=== PATIENT | male | born 1960 | race Caucasian/White ===

== ENCOUNTER 2019-01-08 09:19 | Emergency (ER) | payer BC, SELFPAY ==
[2019-01-08 09:21] VITALS: BP 110/65; PULSE 84; RESP 18; TEMP 36.3; O2SAT 98; BMI 26.3
--- NOTE | 2019-01-08 09:40 | ED.DCSUM_ITS ---
- ER Visit Summary Date of Service: 01/08/19 Chief Complaint: Unable to urinate History of Present Illness: The patient is a 58 M with history of prostate issues who has never seen urology presents with urinary retention. Patient states that last night, he states that he fell he can urinate but cannot get much out. He states he had some dribbling overnight. He developed chills and subjective fever. He states this morning, he was able to have no urine output. He denies any blood when he was able to urinate last night. He is never had prostate surgery. He states that he had issues with urinary flow and has been on Flomax for 2 years. He is on no other medications. He is otherwise healthy. He denies any nausea or vomiting. He denies any back pain. Physical Examination: Vital signs reviewed General: Well-nourished, well-developed Head: Normocephalic, atraumatic Eyes: Pupils equal and reactive, extraocular muscles intact Neck, supple, no lymphadenopathy Heart: Regular rate and rhythm Respiratory: No distress, clear bilaterally Abdomen: Soft, mildly ttp in the suprapubic area, nondistended, no peritoneal signs Back: Nontender Extremities: Nontender, no edema, no cords Skin: Normal color no rash Neuro: Alert and oriented, no focal or lateralizing deficits Test Results: [] Emergency Department Course and Treatment: The patient presents with symptoms of urinary retention. Simon catheter was placed. He only had about 250 cc of urine out. He did feel symptomatically improved. He generally does not show evidence of infection. With a suprapubic pain and reported retention, I do feel that there may been another process going on. Screening labs were obtained were unremarkable. Patient underwent CT of the abdomen and pelvis. This does show acute uncomplicated diverticulitis. I do feel this is likely the cause of the patient's symptoms. I do feel this is likely irritating his bladder given the sensation that he needs to urinate though does not have to. Patient was started on oral Cipro and Flagyl. His catheter was removed. He was able to urinate without issue. At this time, I do feel the patient is safe for outpatient treatment. I am going to start him and continue him on Cipro and Flagyl. I did residence counselor him on concerning symptoms and reasons to return. I also counseled him that he should be reevaluated within 48 hours especially if he has any worsening symptoms. He is comfortable with this plan of care. Treatment Plan: [] Disposition: Discharge Impression: 1. Acute diverticulitis This note was generated with [employer] dictation software. It may contain incorrect words, spelling, and punctuation that were not noted in review of the chart prior to signing ED Disposition - Plan for ED Patient: Instructions: ED Diverticulitis Prescriptions: Hydrocodone Bitart/Apap 5-325 [[place] 5MG-325MG] 1 tab PO Q6H PRN PRN 3 Days #10 tab PRN Reason: Pain Metronidazole [Flagyl] 500 mg PO Q8H #21 tab Ciprofloxacin [Cipro] 500 mg PO BID #14 tab Referrals: NOT,DEFINED [NON-STAFF] -
[2019-01-08] MEDS: Lidocaine Jelly 2% 20 ML Syringe (URO-JET) 20 APPLIC TOPICAL (09:54)
[2019-01-08 10:12] LABS: White Blood Cells 0 SEEN /hpf (0-5)
[2019-01-08 10:16] LABS: Color, Urine Yellow (Yellow); Glucose, Dipstick Normal (Normal); Ketone-Dipstick Negative (Negative); Leukocyte Esterase-Dipstick Negative /ul (Negative); Nitrite-Dipstick Negative (Negative); Occult Blood-Urine 150 /ul (Negative); Protein-Dipstick Negative (Negative); Specific Gravity, Urine 1.015 (1.002-1.030); Urine Bilirubin Dipstick Negative (Negative); Urine Clarity Clear (Clear); Urine Urobilinogen Normal (Normal)
[2019-01-08 10:23] LABS: Bacteria RARE /hpf (None Seen); Mucous, Urine RARE /hpf (<or=2+); Red Blood Cells-Urine 5-10 SEEN /hpf (0-5); Squamous Epithelial Cells - UA 0-5 SEEN /hpf (0-5)
--- NOTE | 2019-01-08 10:28 | CT_ITS ---
STUDY: CT ABDOMEN AND PELVIS WITH CONTRAST REASON FOR EXAM: Male, 58 years old. Difficulty with urination. RADIATION DOSAGE (If Supplied By Facility): CTDIvol = ( 15.78 ) mGy, DLP = ( 1676.25 ) mGycm TECHNIQUE: Transaxial images were obtained from the dome of the diaphragm to the symphysis pubis without oral contrast. Isovue 300 100 IV was administered. Sagittal and coronal images were reconstructed. Individualized dose optimization techniques were used for this CT. COMPARISON: None. FINDINGS: There are increased linear markings with areas of confluence in both lower lobes suggestive of either dependent bibasilar atelectasis and/or mild scarring. Calcified granuloma in the right lower lobe. The visualized portions of the heart are within normal limits. Normal liver. Normal gallbladder and extrahepatic biliary system. Normal spleen. Normal pancreas. Normal bilateral adrenal glands. Normal right kidney. Normal left kidney. Normal visualized stomach. Normal small intestine. There is diverticulosis, with thickening of the colon wall, and pericolonic inflammation changes consistent with acute diverticulitis. The appendix is visualized and appears normal. Normal abdominal aorta. Normal inferior vena cava. There is borderline retroperitoneal lymphadenopathy with enlarged nodes no greater than 10mm in the short axis diameter. A Simon catheter is seen within the urinary bladder. The urinary bladder is not distended. There is evidence of a diffuse bladder wall thickening. There is a small umbilical hernia containing fat. Disc space narrowing and degeneration at the L5-S1 level. CT/Abdomen/Pelvis W IV Cont ONLY IMPRESSION: Findings in keeping with an uncomplicated acute sigmoid diverticulitis. Bladder wall thickening. Electronically Signed: Rambo Linares, at 11:21 EDT , Service support ,
[2019-01-08 10:40] LABS: Absolute Lymphocyte Count 0.42 X10^3/ul (0.83-4.51); Absolute Neutrophil Count 9.9 X10^3/uL (2.0-7.7); Basophil# 0.02 X10^3/uL; Basophil% 0.2 % (0-1); Hemoglobin 13.5 g/dl (13.0-16.5); Lymphocyte # 0.42 X10^3/ul (4.0); Lymphocyte % 3.9 % (19-41); Mean Corp Hgb Conc 32.9 g/gl (32-36); Mean Corpuscular Hgb 30.2 pg (27.0-32.0); Mean Corpuscular Volume 91.7 fL (80-94); Mean Platelet Vol. 9.9 fl (6.2-12.0); Monocyte# 0.58 X10^3/uL; Monocyte% 5.3 % (0-10); Neutrophil # 9.85 X10^3/uL (2.7-7.7); Neutrophil % 90.5 % (47-70); Platelet Count 171 K/mm3 (150-450); RBC Distribution Width CV 13.1 % (11.6-14.6); RBC Distribution Width SD 43.6 fl (35.1-43.9); Red Blood Count 4.47 M/mm3 (4.6-6.2); White Blood Count 10.9 K/mm3 (4.4-11.0)
[2019-01-08] MEDS: 0.9% Normal Saline 1,000 ML 999 ML IV (10:40)
[2019-01-08 10:42] LABS: Differential Indicated SCAN CRITERIA MET; POSITIVE COUNT NO; POSITIVE DIFFERENTIAL YES; POSITIVE MORPHOLOGY NO
[2019-01-08 10:51] LABS: Anion Gap 8 (5-15); BUN 17 mg/dL (7-18); BUN/Creat Ratio 18.2 RATIO (10-20); Calcium,Total 8.4 mg/dL (8.5-10.1); Chloride 107 mmol/L (98-107); Creatinine, Serum 0.94 mg/dL (0.70-1.30); EST Glomerular Filtration Rate 88 mL/min (>60); Est Glom Filt Rate - Afr Amer 107 mL/min (>60); Estimated Creatinine Clearance 92.34 ml/min; Glucose 112 mg/dL (74-106); Potassium 3.8 mmol/L (3.5-5.1); Sodium Level 138 mmol/L (136-145)
[2019-01-08] MEDS: Ciprofloxacin 500 MG Tablet PO (12:15)
[2019-01-08] MEDS: metroNIDAZOLE 500 MG Tablet PO (12:15)
[2019-01-08 13:24] VITALS: BP 108/66; PULSE 72; RESP 16; O2SAT 99
== END 2019-01-08 13:25 | disposition home or self-care (01) ==
PROVIDERS: Emergency Provider Emergency Medicine
DX: R33.9 Retention of urine, unspecified (principal); K57.92 Diverticulitis of intestine, part unspecified, without perforation or abscess without bleeding; N40.0 Benign prostatic hyperplasia without lower urinary tract symptoms; Z79.899 Other long term (current) drug therapy
CPT/HCPCS: 51702; 74177; 80048; 81001; 85025; 87086; 96360; 96361; 99284; J7030; Q9967; A4216

== ENCOUNTER 2019-01-14 15:52 | Inpatient (IN) | payer BC, SELFPAY ==
[2019-01-14] VITALS (7 sets, daily range): BP systolic 114–170; BP diastolic 70–80; PULSE 74–95; RESP 14–24; TEMP 36.4–37.7; O2SAT 92–100; BMI 26.3; BMI 26.1
--- NOTE | 2019-01-14 16:13 | CT_ITS ---
STUDY: CT ABDOMEN AND PELVIS WITH CONTRAST REASON FOR EXAM: Male, 58 years old. Recent diverticulitis. Abdominal pain. RADIATION DOSAGE (If Supplied By Facility): CTDIvol = ( 16.70 ) mGy, DLP = ( 1163.99 ) mGycm TECHNIQUE: Transaxial images were obtained from the dome of the diaphragm to the symphysis pubis without oral contrast. Isovue 300 100mL IV/Oral was administered. Sagittal and coronal images were reconstructed. Individualized dose optimization techniques were used for this CT. COMPARISON: January 08, 2019 FINDINGS: The visualized lung bases are unremarkable. The visualized portions of the heart are within normal limits. Normal liver. Normal gallbladder and extrahepatic biliary system. Normal spleen. Normal pancreas. Normal bilateral adrenal glands. Normal right kidney. Normal left kidney. Normal visualized stomach. There is circumferential wall thickening of the terminal ileum that is likely reactive. There are diverticula throughout the colon associated with circumferential wall thickening of the sigmoid colon and adjacent stranding. The appendix is visualized and appears normal. There are new peripherally enhancing fluid collections within the pelvis with associated adjacent stranding. Fluid collections include a 6.5 x 4.2 x 5.1 cm focus within the perirectal region posterior to the sigmoid colon. There are extraluminal fluid collections with peripheral enhancement suggestive of prior bowel perforation. Normal abdominal aorta. Normal inferior vena cava. Normal retroperitoneum. Normal urinary bladder. Normal abdominal wall. There are diffuse degenerative changes of the visualized lumbar spine. CT/Abdomen/Pelvis WITH Contrast IMPRESSION: New fluid collections within the pelvis with an appearance highly suspicious for underlying abscesses. There is associated air within several fluid collection suggesting prior bowel perforation. Acute diverticulitis of the sigmoid colon. N.B. : The above information has been verbally conveyed by Gina Camara MD to Marine Zavala MD, on 01/14/2019 19:00:30 (ET). Electronically Signed: Gina Camara MD at 19:01 EDT Tel , Service support ,
--- NOTE | 2019-01-14 16:16 | ED.DCSUM_ITS ---
- ER Visit Summary Date of Service: 01/14/19 Chief Complaint: Abdominal pain History of Present Illness: The patient is a 58 M who was seen in the ER last week for urinary retention and CT revealed diverticulitis. Patient has been on Cipro and Flagyl for the past week. He continues to have pain along with fever and chills. He feels that he is not urinating as much as he would expect for as much as he is drinking. He denies any prior abdominal surgeries. Physical Examination: Vital signs unremarkable. Temperature here is 97.5. Head neck examination unremarkable. Heart is regular rate and rhythm. Lung sounds are clear. Abdomen is soft with lower abdominal tenderness and guarding. There is no rebound. Hypoactive bowel sounds are present throughout. Test Results: CBC was normal white count with a left shift. Chemistry studies significant only for potassium 3.4. Urinalysis is unremarkable. CT scan with contrast reveals fluid collections within the pelvis suspicious for underlying abscesses. Air within several the fluid collections suggest prior bowel perforation. Emergency Department Course and Treatment: Patient declined anything for pain while here. Bladder scan was performed after he urinated and revealed only 34 cc. Results were discussed with Dr. Huff is patient has previously been seen by [facility]. Patient be given a dose of Zosyn and plan will be admit to medicine with probable CT-guided drainage tomorrow. Treatment Plan: [] Disposition: Admit Impression: Perforated diverticulitis with pelvic abscesses This note was generated with [employer] dictation software. It may contain incorrect words, spelling, and punctuation that were not noted in review of the chart prior to signing ED Disposition - Plan for ED Patient: Referrals: [facility] Doctor,Out of [NON-STAFF] -
[2019-01-14 16:37] LABS: Absolute Lymphocyte Count 1.45 X10^3/ul (0.83-4.51); Absolute Neutrophil Count 8.1 X10^3/uL (2.0-7.7); Basophil# 0.04 X10^3/uL; Basophil% 0.4 % (0-1); Eosinophil# 0.05 X10^3/uL; Eosinophils% 0.5 % (0-5); Hematocrit 40.4 % (40-54); Hemoglobin 13.2 g/dl (13.0-16.5); Lymphocyte # 1.45 X10^3/ul (4.0); Lymphocyte % 14.9 % (19-41); Mean Corp Hgb Conc 32.7 g/gl (32-36); Mean Corpuscular Hgb 29.6 pg (27.0-32.0); Mean Corpuscular Volume 90.6 fL (80-94); Mean Platelet Vol. 8.9 fl (6.2-12.0); Monocyte# 0.08 X10^3/uL; Monocyte% 0.8 % (0-10); Neutrophil # 8.06 X10^3/uL (2.7-7.7); Neutrophil % 83.2 % (47-70); Platelet Count 224 K/mm3 (150-450); RBC Distribution Width CV 13.3 % (11.6-14.6); RBC Distribution Width SD 43.7 fl (35.1-43.9); Red Blood Count 4.46 M/mm3 (4.6-6.2); White Blood Count 9.7 K/mm3 (4.4-11.0)
[2019-01-14 16:39] LABS: POSITIVE COUNT NO; POSITIVE DIFFERENTIAL NO; POSITIVE MORPHOLOGY NO
[2019-01-14 16:59] LABS: Anion Gap 6 (5-15); BUN 9 mg/dL (7-18); BUN/Creat Ratio 10.9 RATIO (10-20); Calcium,Total 8.4 mg/dL (8.5-10.1); Chloride 100 mmol/L (98-107); Creatinine, Serum 0.82 mg/dL (0.70-1.30); EST Glomerular Filtration Rate 102 mL/min (>60); Est Glom Filt Rate - Afr Amer 124 mL/min (>60); Estimated Creatinine Clearance 109.09 ml/min; Glucose 100 mg/dL (74-106); Potassium 3.4 mmol/L (3.5-5.1); Sodium Level 137 mmol/L (136-145)
[2019-01-14 17:04] LABS: Bacteria 0 SEEN /hpf (None Seen); Mucous, Urine 0 SEEN /hpf (<or=2+); Red Blood Cells-Urine 0 SEEN /hpf (0-5); Squamous Epithelial Cells - UA 0 SEEN /hpf (0-5); White Blood Cells 0 SEEN /hpf (0-5)
[2019-01-14 17:08] LABS: Color, Urine Yellow (Yellow); Glucose, Dipstick Normal (Normal); Ketone-Dipstick 5 mg/dl (Negative); Leukocyte Esterase-Dipstick 25 /ul (Negative); Nitrite-Dipstick Negative (Negative); Occult Blood-Urine Negative /ul (Negative); Protein-Dipstick Negative (Negative); Specific Gravity, Urine 1.005 (1.002-1.030); Urine Bilirubin Dipstick Negative (Negative); Urine Clarity Clear (Clear); Urine Urobilinogen Normal (Normal)
[2019-01-14] MEDS: 0.9% Normal Saline 1,000 ML 150 ML IV (17:24)
--- NOTE | 2019-01-14 19:20 | HP.PCM_ITS ---
Problem List (1) Acute diverticulitis Status: Acute History of Present Illness Date of Admission: 01/14/19 Chief Complaint: abdominal pain The patient is a 58 year old M with a significant history of urinary retention who presented with 1 week history of progressively worsening excruciating lower abdominal pain. His pain is nonradiating. His pain is an aching type of pain. There are no aggravating or ameliorating factors. Associated with his symptoms is fever, chills, and night sweats. He reported a fever of 100 while at home. Patient was at our emergency department about a week ago and was prescribed ciprofloxacin, Flagyl and pain medication. While on this regimen patient was still not getting better so he came to the emergency department. At this new emergency department visit patient was given Zosyn. CT of the abdomen and pelvis showed abscesses. Dr. Stallings, General Surgery was consulted and is interested in following the patient. In the meantime Dr. Stallings, General Surgeon recommended CT-guided drainage of abscesses. Past Medical History Medical History: Medical History (Last Reviewed 01/15/19 @ 05:08 by Jayme Magaña MD) Urinary retention R33.9 Allergies No Known Allergies Allergy (Verified 01/14/19 15:57) Home Medications: Ambulatory Orders Medication Instructions Recorded Ciprofloxacin [Cipro] 500 mg PO BID #14 tab 01/08/19 Metronidazole [Flagyl] 500 mg PO Q8H #21 tab 01/08/19 Tamsulosin HCl [Flomax] 0.4 mg PO DAILY 01/08/19 Calcium Polycarbophil [Fiber] 625 mg PO DAILY 01/14/19 Multivitamin with Minerals 1 tab PO DAILY 01/14/19 [Multiple Vitamin] Surgical History: no surgical history Lives: Spouse/ Significant Other Smoking Status: Former smoker Alcohol: Occasional Review of Systems Constitutional: Reports: Chills, Fever. Denies: Weight Change HEENT: Denies: Head Aches, Sinus Congestion, Sinus Drainage Cardiovascular: Denies: Chest Pain, Palpitations Respiratory: Denies: Cough, Shortness of breath at rest, Sputum production Gastrointestinal: Reports: Abdominal Pain, Nausea. Denies: Vomiting Genitourinary: Denies: Dysuria Musculoskeletal: Denies: Joint Pain, Joint Tenderness Skin: Denies: Rash, Wounds Neurological: Denies: Numbness, Tingling, Focal weakness Psychiatric: Denies: Anxiety, Depression, Homicidal Ideations, Suicidal Ideations Hematologic/ Lymphatic: Denies: Easy Bruising, Easy Bleeding VTE Information - Inpt Only VTE Present on Admission: No VTE Mechan Device Prophylaxis: None VTE Pharm Prophylaxis ordered?: Yes Patient Problems: Active and Suspected Problems (Last Updated 01/14/19 @ 19:54 by Jayme Magaña MD) Acute diverticulitis (Acute) - Physical Exam General: Alert, Oriented x3, Cooperative HEENT: Atraumatic, PERRLA, EOMI, Normocephalic Neck: Supple, No JVD, Negative Carotid Bruits Lungs: Clear to auscultation, Normal air movement Cardiovascular: Regular rate, No murmurs Abdomen: Bowel Sounds Present, Soft, Tender Extremities: No edema, Capillary Refill Less than 3 Seconds Skin: No rashes, No breakdown Musculoskeletal: No Tenderness to Palpation of Joints or Extremities Neurological: Neuro grossly intact Psych/Mental Status: Normal Affect, Appropriate Vital Signs Temp Pulse Resp BP Pulse Ox 98.0 F 88 16 121/80 H 98 01/14/19 18:12 01/14/19 18:12 01/14/19 18:12 01/14/19 15:54 01/14/19 18:12 Oxygen Delivery Method Room Air Weight: 87.997 kg Body Mass Index (BMI) 26.3 Laboratory Tests Past 24 Hrs 01/14/19 01/14/19 01/14/19 16:25 16:25 16:58 WBC 9.7 RBC 4.46 L Hgb 13.2 Hct 40.4 MCV 90.6 MCH 29.6 MCHC 32.7 RDW 13.3 RDW Differential 43.7 Plt Count 224 MPV 8.9 Immature Gran % (Auto) 0.200 Neut % (Auto) 83.2 H Lymph % (Auto) 14.9 L [place] % (Auto) 0.8 Eos % (Auto) 0.5 Baso % (Auto) 0.4 Absolute Neuts (auto) 8.1 H Absolute Lymphs (auto) 1.45 Total Counted Not Reportable Sodium 137 Potassium 3.4 L Chloride 100 Carbon Dioxide 31.0 Anion Gap 6 BUN 9 Creatinine 0.82 Estim Creat Clear Calc 109.09 Est GFR (MDRD) Af Amer 124 Est GFR (MDRD) Non-Af 102 BUN/Creatinine Ratio 10.9 Glucose 100 Calcium 8.4 L Urine Color Yellow Urine Clarity Clear Urine pH 7.0 Ur Specific [place] 1.005 Urine Protein Negative Urine Glucose (UA) Normal Urine Ketones 5 H Urine Occult Blood Negative Urine Nitrite Negative Urine Bilirubin Negative Urine Urobilinogen Normal Ur Leukocyte Esterase 25 H Urine RBC 0 SEEN Urine WBC 0 SEEN Ur Squamous Epith Cells 0 SEEN Urine Bacteria 0 SEEN Urine Mucus 0 SEEN Assessment/Plan All Active Problems (Last Updated 01/14/19 @ 19:54 by Jayme Magaña MD) Acute diverticulitis (Acute) The patient is a 58 year old M with a significant history of urinary retention who presented with 1 week history of progressively worsening excruciating lower abdominal pain and was diagnosed with diverticulitis but did not get better on outpatient antibiotics and now with probable abdominal abscesses. Acute diverticulitis. Abdominal and pelvis CT showed: New fluid collection within the pelvis with an appearance highly suspicious for underlying abscess. There is associated air within several fluid collection suggesting prior bowel perforation. Acute diverticulitis of the sigmoid colon. Abdomen and pelvis CT was independently reviewed. I agree with radiologist interpretation. Received Zosyn at the emergency department since patient diverticulitis progressed on outpatient ciprofloxacin and Flagyl. We will continue Zosyn at this time. Lactated Ringer's with potassium ordered. As needed morphine and Zofran ordered. General surgery, Dr. Stallings consulted. Order for CT-guided drainage of abscesses. PT and INR ordered. Trend CBC and BMP Urinary retention Flomax continued. DVT prophylaxis Continue heparin ordered. Code Visit Inpatient E&M: 42301 Init Hosp L3
[2019-01-14] MEDS: Morphine 2 MG/ML Syringe IV (20:40)
[2019-01-14] MEDS: Heparin Injection (Vial) 5,000 UNIT/ML VIAL 5000 UNIT SC (20:41)
[2019-01-14] MEDS: Ondansetron 4 MG/2 ML Vial IV (22:26)
--- NOTE | 2019-01-14 22:48 | PCM.CONS.GEN ---
Reason for Consult Date of Consultation: 01/14/19 Reason for Consultation: diverticular abscess History of Present Illness: The patient is a 58 year old M who presented with his first case of diverticulitis. One week previously he was noted to have urinary retention and progressive lower abdominal pain. This is initially felt to be secondary urinary tract infection but in the emergency department CT scan was obtained and he was diagnosed with diverticulitis. He was discharged on Cipro and Flagyl. the patient was doing well through Sunday but for the last 2 days he noted increasing lower abdominal pain. He had a low-grade fever.laboratory studies demonstrate a white blood cell count of 9.7 but a left shift. CT scan of the abdomen and pelvis was obtained.initial CT scan from January 08 was compared to this. That CAT scan demonstrated bladder wall thickening and on complicated acute sigmoid diverticulitis.the current CT scan was reviewed. This demonstrates enhancing fluid collection in the pelvis with stranding area did the 2 fluid collections measures 6.5 x 4.2 and 5.1 cm. These are both deep in the pelvis near the low sigmoid area. the patient notes no other significant medical history area did he did have a colonoscopy 7 years previously which was unremarkable. Past Medical History Medical History: Medical History (Last Updated 01/14/19 @ 19:54 by Jayme Magaña MD) Urinary retention R33.9 Allergies No Known Allergies Allergy (Verified 01/14/19 15:57) Home Medications: Ambulatory Orders Medication Instructions Recorded Ciprofloxacin [Cipro] 500 mg PO BID #14 tab 01/08/19 Metronidazole [Flagyl] 500 mg PO Q8H #21 tab 01/08/19 Tamsulosin HCl [Flomax] 0.4 mg PO DAILY 01/08/19 Calcium Polycarbophil [Fiber] 625 mg PO DAILY 01/14/19 Multivitamin with Minerals 1 tab PO DAILY 01/14/19 [Multiple Vitamin] Surgical History: no surgical history Lives: Spouse/ Significant Other Smoking Status: Former smoker Tobacco Use: Cigarettes Alcohol: Occasional Review of Systems Constitutional: Reports: Anorexia, Fever, Malaise. Denies: Chills, Weight Change HEENT: Denies: Head Aches, Sinus Congestion, Sinus Drainage Cardiovascular: Denies: Chest Pain, Palpitations Respiratory: Denies: Cough, Shortness of breath at rest, Sputum production Gastrointestinal: Reports: Abdominal Pain. Denies: Nausea, Vomiting Genitourinary: Denies: Dysuria Musculoskeletal: Denies: Joint Pain, Joint Tenderness Skin: Denies: Rash, Wounds Neurological: Denies: Numbness, Tingling, Focal weakness Psychiatric: Denies: Anxiety, Depression, Homicidal Ideations, Suicidal Ideations Hematologic/ Lymphatic: Denies: Easy Bruising, Easy Bleeding Patient Problems: Active and Suspected Problems (Last Updated 01/14/19 @ 19:54 by Jayme Magaña MD) Acute diverticulitis (Acute) - Physical Exam General: Alert, Oriented x3, Cooperative HEENT: Atraumatic, PERRLA, EOMI, Normocephalic Neck: Supple, No JVD, Negative Carotid Bruits Lungs: Clear to auscultation, Normal air movement Cardiovascular: Regular rate, No murmurs Abdomen: Bowel Sounds Present, Soft, Tender - right and left suprapubic area consistent with CT scan findings. No diffuse peritoneal signs Extremities: No edema, Capillary Refill Less than 3 Seconds Skin: No rashes, No breakdown Musculoskeletal: No Tenderness to Palpation of Joints or Extremities Neurological: Cranial nerves II-XII grossly intact Psych/Mental Status: Normal Affect, Appropriate Vital Signs Temp Pulse Resp BP Pulse Ox 99.9 F H 74 16 114/73 100 01/14/19 20:28 01/14/19 20:28 01/14/19 20:28 01/14/19 20:28 01/14/19 20:28 Oxygen Delivery Method Room Air Weight: 85 kg Body Mass Index (BMI) 26.1 Laboratory Tests Past 24 Hrs 01/14/19 01/14/19 01/14/19 16:25 16:25 16:58 WBC 9.7 RBC 4.46 L Hgb 13.2 Hct 40.4 MCV 90.6 MCH 29.6 MCHC 32.7 RDW 13.3 RDW Differential 43.7 Plt Count 224 MPV 8.9 Immature Gran % (Auto) 0.200 Neut % (Auto) 83.2 H Lymph % (Auto) 14.9 L [place] % (Auto) 0.8 Eos % (Auto) 0.5 Baso % (Auto) 0.4 Absolute Neuts (auto) 8.1 H Absolute Lymphs (auto) 1.45 Total Counted Not Reportable Sodium 137 Potassium 3.4 L Chloride 100 Carbon Dioxide 31.0 Anion Gap 6 BUN 9 Creatinine 0.82 Estim Creat Clear Calc 109.09 Est GFR (MDRD) Af Amer 124 Est GFR (MDRD) Non-Af 102 BUN/Creatinine Ratio 10.9 Glucose 100 Calcium 8.4 L Urine Color Yellow Urine Clarity Clear Urine pH 7.0 Ur Specific [place] 1.005 Urine Protein Negative Urine Glucose (UA) Normal Urine Ketones 5 H Urine Occult Blood Negative Urine Nitrite Negative Urine Bilirubin Negative Urine Urobilinogen Normal Ur Leukocyte Esterase 25 H Urine RBC 0 SEEN Urine WBC 0 SEEN Ur Squamous Epith Cells 0 SEEN Urine Bacteria 0 SEEN Urine Mucus 0 SEEN Assessment/Plan All Active Problems (Last Updated 01/14/19 @ 19:54 by Jayme Magaña MD) Acute diverticulitis (Acute) diverticulitis, now with 2 low pelvic abscesses. Patient is admitted to the medicine service. We'll plan for CT guided drainage in the morning.laboratory studies including repeat CBC, metabolic profile, and PT PTT were ordered for the morning.. Patient was started on IV Zosyn. He'll be given narcotic pain medication as needed.
[2019-01-15] VITALS (15 sets, daily range): BP systolic 91–120; BP diastolic 36–95; PULSE 72–85; RESP 16–20; TEMP 36.8–37.8; O2SAT 92–98
[2019-01-15] MEDS: Morphine 2 MG/ML Syringe IV ×3 (02:20→22:56)
[2019-01-15 06:01] LABS: Absolute Lymphocyte Count 0.99 X10^3/ul (0.83-4.51); Absolute Neutrophil Count 7.8 X10^3/uL (2.0-7.7); Basophil# 0.03 X10^3/uL; Basophil% 0.3 % (0-1); Eosinophil# 0.05 X10^3/uL; Eosinophils% 0.5 % (0-5); Hematocrit 37.2 % (40-54); Hemoglobin 11.9 g/dl (13.0-16.5); Lymphocyte # 0.99 X10^3/ul (4.0); Lymphocyte % 10.3 % (19-41); Mean Corpuscular Hgb 29.5 pg (27.0-32.0); Mean Corpuscular Volume 92.1 fL (80-94); Mean Platelet Vol. 9.3 fl (6.2-12.0); Monocyte# 0.67 X10^3/uL; Neutrophil % 81.5 % (47-70); Platelet Count 248 K/mm3 (150-450); RBC Distribution Width CV 13.4 % (11.6-14.6); RBC Distribution Width SD 44.9 fl (35.1-43.9); Red Blood Count 4.04 M/mm3 (4.6-6.2); White Blood Count 9.6 K/mm3 (4.4-11.0)
[2019-01-15 06:18] LABS: POSITIVE COUNT NO; POSITIVE DIFFERENTIAL NO; POSITIVE MORPHOLOGY NO
[2019-01-15 06:37] LABS: Anion Gap 8 (5-15); BUN 6 mg/dL (7-18); BUN/Creat Ratio 6.8 RATIO (10-20); Calcium,Total 8.3 mg/dL (8.5-10.1); Chloride 106 mmol/L (98-107); Creatinine, Serum 0.88 mg/dL (0.70-1.30); EST Glomerular Filtration Rate 95 mL/min (>60); Est Glom Filt Rate - Afr Amer 115 mL/min (>60); Estimated Creatinine Clearance 98.64 ml/min; Glucose 97 mg/dL (74-106); Potassium 3.7 mmol/L (3.5-5.1); Sodium Level 141 mmol/L (136-145)
[2019-01-15] MEDS: Tamsulosin HCl 0.4 MG Capsule PO (08:13)
[2019-01-15 08:37] LABS: International Normalized Ratio 1.4
[2019-01-15 08:42] LABS: Partial Thromboplast Time 32.5 Seconds (24.1-36.2)
--- NOTE | 2019-01-15 09:28 | PCM.PN.SRG ---
Patient Problems: Active and Suspected Problems (Last Reviewed 01/15/19 @ 05:08 by Jayme Magaña MD) Acute diverticulitis (Acute) Subjective: cramping lower abdominal/pelvic pain - Physical Exam General: Alert, Oriented x3 Lungs: Clear to auscultation, Normal air movement Cardiovascular: Regular rate, No murmurs Abdomen: Bowel Sounds Present, Soft, Tender - lower abdomen bilaterally Vital Signs Temp Pulse Resp BP Pulse Ox 100.1 F H 78 16 94/57 L 94 01/15/19 08:03 01/15/19 08:03 01/15/19 08:03 01/15/19 08:03 01/15/19 08:03 Oxygen Delivery Method Room Air Weight: 85 kg Body Mass Index (BMI) 26.1 Intake and Output for Last 24 Hours 01/13/19 01/14/19 01/15/19 23:59 23:59 23:59 Intake Total 1093 / 1093 Output Total 800 / 800 Balance 293 / 293 Laboratory Tests Past 24 Hrs 01/14/19 01/14/19 01/14/19 16:25 16:25 16:58 WBC 9.7 RBC 4.46 L Hgb 13.2 Hct 40.4 MCV 90.6 MCH 29.6 MCHC 32.7 RDW 13.3 RDW Differential 43.7 Plt Count 224 MPV 8.9 Immature Gran % (Auto) 0.200 Neut % (Auto) 83.2 H Lymph % (Auto) 14.9 L [place] % (Auto) 0.8 Eos % (Auto) 0.5 Baso % (Auto) 0.4 Absolute Neuts (auto) 8.1 H Absolute Lymphs (auto) 1.45 Total Counted Not Reportable PT INR APTT Sodium 137 Potassium 3.4 L Chloride 100 Carbon Dioxide 31.0 Anion Gap 6 BUN 9 Creatinine 0.82 Estim Creat Clear Calc 109.09 Est GFR (MDRD) Af Amer 124 Est GFR (MDRD) Non-Af 102 BUN/Creatinine Ratio 10.9 Glucose 100 Calcium 8.4 L Urine Color Yellow Urine Clarity Clear Urine pH 7.0 Ur Specific [place] 1.005 Urine Protein Negative Urine Glucose (UA) Normal Urine Ketones 5 H Urine Occult Blood Negative Urine Nitrite Negative Urine Bilirubin Negative Urine Urobilinogen Normal Ur Leukocyte Esterase 25 H Urine RBC 0 SEEN Urine WBC 0 SEEN Ur Squamous Epith Cells 0 SEEN Urine Bacteria 0 SEEN Urine Mucus 0 SEEN 01/15/19 01/15/19 01/15/19 05:15 05:15 08:18 WBC 9.6 RBC 4.04 L Hgb 11.9 L Hct 37.2 L MCV 92.1 MCH 29.5 MCHC 32.0 RDW 13.4 RDW Differential 44.9 H Plt Count 248 MPV 9.3 Immature Gran % (Auto) 0.400 Neut % (Auto) 81.5 H Lymph % (Auto) 10.3 L [place] % (Auto) 7.0 Eos % (Auto) 0.5 Baso % (Auto) 0.3 Absolute Neuts (auto) 7.8 H Absolute Lymphs (auto) 0.99 Total Counted Not Reportable PT 17.0 H INR 1.4 APTT 32.5 Sodium 141 Potassium 3.7 Chloride 106 Carbon Dioxide 27.0 Anion Gap 8 BUN 6 L Creatinine 0.88 Estim Creat Clear Calc 98.64 Est GFR (MDRD) Af Amer 115 Est GFR (MDRD) Non-Af 95 BUN/Creatinine Ratio 6.8 L Glucose 97 Calcium 8.3 L Urine Color Urine Clarity Urine pH Ur Specific [place] Urine Protein Urine Glucose (UA) Urine Ketones Urine Occult Blood Urine Nitrite Urine Bilirubin Urine Urobilinogen Ur Leukocyte Esterase Urine RBC Urine WBC Ur Squamous Epith Cells Urine Bacteria Urine Mucus Medical Necessity - Tobacco Use Smoking Status: Former smoker Tobacco Use: Cigarettes Assessment/Plan All Active Problems (Last Reviewed 01/15/19 @ 05:08 by Jayme Magaña MD) Acute diverticulitis (Acute) diverticulitis, now with 2 low pelvic abscesses. Patient is admitted to the medicine service. Radiology is planning for CT guided drainage in the morning. Laboratory studies including repeat CBC, metabolic profile, and PT PTT were ordered for the morning.. Patient was started on IV Zosyn. He'll be given narcotic pain medication as needed.
[2019-01-15] MEDS: Morphine 4 MG/ML Syringe IV ×3 (09:43→17:52)
[2019-01-15] MEDS: Ondansetron 4 MG/2 ML Vial IV ×2 (09:43→15:32)
[2019-01-15] MEDS: 0.9% NaCl Peripheral Flush Adult/Peds IV ×4 (09:43→17:50)
--- NOTE | 2019-01-15 10:02 | CASEMGMT ---
SW met w/pt briefly in regard to prior level of function and discharge plan. Pt's nephew present during conversation. Pt is about to go down for a procedure w/Dr. Stallings. PCP: Dr. Arabella Kat in [place] Specialists: None Preferred pharmacy: [facility] in [place] Insurance/Prescription benefit: Lupe Living Will/POA: No LNOK/Living arrangements: Pt lives home w/, independent with all ADL's, drives, works. Pt's nephew w/pt in hospital at present. DME/HHC: No history of DME/HHC. Plan: Home w/ at discharge. SW let pt know that SW is available should any discharge needs arise. MITCHELL Kiser, FINAL ASSEMBLY AND PACKING SUPERVISOR
--- NOTE | 2019-01-15 11:00 | CT_ITS ---
PROCEDURE: CT-GUIDED PELVIC ABSCESS DRAINAGE IN THE PELVIC CUL-DE-SAC Individualized dose optimization techniques were used for this CT. INDICATION: Male, 58 years old. Pelvic abscess CONSENT: The risks, benefits and alternatives to the procedure were explained to the patient, and the patient agreed to the procedure and signed the consent. SEDATION: Intermittent the intravenous and demonstration of Versed and fentanyl by nursing staff under continuous cardiopulmonary monitoring. Sedation less than approximately 30 minutes STERILE BARRIER TECHNIQUE: The following sterile barrier precautions were used during the procedure: hand hygiene; use of 2% chlorhexidine aseptic; use of a cap, mask, sterile gown, sterile gloves, sterile full body drape, and a large sterile sheet. PROCEDURE/TECHNIQUE: The risks, benefits, and alternatives to the procedure were explained to patient, and the patient agreed to the procedure and signed a consent form for the procedure. A timeout was performed to confirm the patient's identity, the type of procedure, to be performed and the site of entry. Patient was positioned right lateral decubitus position on the CT scan table. Under CT guidance using sterile technique and after infiltration of the skin and subcutaneous soft tissues with 40 mL of lidocaine 1% 20-gauge needle was introduced in the abscess and then 0.018 guidewire was advanced and the needle was removed and a 4 [place] sheath was advanced over the guidewire then the existing guidewire is removed and a new 0.035 J-tip guidewire was advanced in the 4 [place] dilator then the 4 [place] guide is removed and the tract is serially dilated up to 8 [place]. An 8 [place] catheter is advanced over the guidewire and is coiled within the abscess. 40 cc of purulent fluid were removed and sent to lab for evaluation. The drainage catheter is secured to the skin using an adhesive device and is attached to a bag for continuous drainage. There was no immediate complication. FINDINGS: Pelvic abscess was successfully drained with an [address]/CT Guidance Abscess Drg w/Cath IMPRESSION: Successful pelvic abscess drainage under CT guidance. Electronically Signed: Mendoza Jean, at 14:17 EDT Tel , Service support ,
[2019-01-15] MEDS: Midazolam 2 MG/2 ML Syringe IV (11:21)
[2019-01-15] MEDS: fentaNYL 100 MCG/2 ML Ampul IV (11:21)
[2019-01-15] MEDS: Heparin Injection (Vial) 5,000 UNIT/ML VIAL 5000 UNIT SC ×2 (13:55→22:56)
--- NOTE | 2019-01-15 14:49 | CHAPLAIN ---
Type of Pastoral Visit _x__ Initial Visit ___ Follow-up Visit ___ On-call Visit ___ General Patient Visit ___ Spiritual Assessment ___ Family Conference ___ Bereavement ___ Rapid Response ___ Code Blue ___ Other (describe below) Pastoral Care Referral From _x__ Patient ___ Family ___ Nurse ___ Physician ___ Nuclear Waste Process Operator ___ Tableau Architect ___ Other (describe below) Sacrament/Intervention _x__ Active listening ___ Anointing ___ Orthodoxy ___ Bereavement ___ Communion ___ Crystal exploration ___ ___ Life review _x__ Prayer ___ Reconciliation ___ Sacrament of Sick _x__ Supportive presence ___ Wedding ___ Other (describe below) Pastoral Comments notified his hoahaoism of his admission as requested
--- NOTE | 2019-01-15 15:59 | PN_ITS ---
Patient Problems: Active and Suspected Problems (Last Reviewed 01/15/19 @ 05:08 by Jayme Magaña MD) Acute diverticulitis (Acute) Subjective: Patient was seen and examined today, he continues to have abdominal pain, T-max today was 100.1, patient's white blood cell count was steady at 9.6. Patient underwent placement of a drainage catheter in the left lower abdomen today, it was successful in draining approximately 40 cc of pus. - Physical Exam General: Alert, Oriented x3, Cooperative, Well developed, Well nourished HEENT: Atraumatic, PERRLA, EOMI, Normocephalic Oral: Moist Mucosa Neck: Supple, Trachea Midline, Thyroid Normal Size and Texture Lungs: Clear to auscultation, Normal air movement, No rhonchi, No wheeze, No rales Cardiovascular: Regular rate, Regular Rhythm, Normal S1, Normal S2, No murmurs Abdomen: Bowel Sounds Present, Soft, Hypoactive Bowel Sounds, Tender - Diffuse lower quadrant abdominal tenderness was noted to palpation Extremities: No edema, Capillary Refill Less than 3 Seconds Skin: No rashes, No breakdown Musculoskeletal: No Tenderness to Palpation of Joints or Extremities Neurological: Cranial nerves II-XII grossly intact, Neuro grossly intact, Sensory exam intact to light touch and pain, Coordination normal Psych/Mental Status: Normal Affect, Appropriate, Alert and oriented to time, place, person, mood and affect Vital Signs Temp Pulse Resp BP Pulse Ox 98.8 F 84 16 91/53 L 95 01/15/19 15:26 01/15/19 15:26 01/15/19 15:26 01/15/19 15:26 01/15/19 15:26 Oxygen Flow Rate (L/min) [5] 2 Oxygen Flow Rate (L/min) [4] 2 Oxygen Flow Rate (L/min) [3] 2 Oxygen Flow Rate (L/min) [2] 2 Oxygen Flow Rate (L/min) [1 ( 2 Initial Baseline)] Oxygen Delivery Method [5] Nasal Cannula Oxygen Delivery Method [4] Nasal Cannula Oxygen Delivery Method [3] Nasal Cannula Oxygen Delivery Method [2] Nasal Cannula Oxygen Delivery Method [1 ( Nasal Cannula Initial Baseline)] Oxygen Delivery Method Room Air Weight: 85 kg Body Mass Index (BMI) 26.1 Intake and Output for Last 24 Hours 01/13/19 01/14/19 01/15/19 23:59 23:59 23:59 Intake Total 1902 / 1902 Output Total 1325 / 1325 Balance 577 / 577 Microbiology Past 72 Hours 01/15/19 Unknown Gram Stain - Final Aspirate - Abdominal Laboratory Tests Past 24 Hrs 01/14/19 01/14/19 01/14/19 16:25 16:25 16:58 WBC 9.7 RBC 4.46 L Hgb 13.2 Hct 40.4 MCV 90.6 MCH 29.6 MCHC 32.7 RDW 13.3 RDW Differential 43.7 Plt Count 224 MPV 8.9 Immature Gran % (Auto) 0.200 Neut % (Auto) 83.2 H Lymph % (Auto) 14.9 L [place] % (Auto) 0.8 Eos % (Auto) 0.5 Baso % (Auto) 0.4 Absolute Neuts (auto) 8.1 H Absolute Lymphs (auto) 1.45 Total Counted Not Reportable PT INR APTT Sodium 137 Potassium 3.4 L Chloride 100 Carbon Dioxide 31.0 Anion Gap 6 BUN 9 Creatinine 0.82 Estim Creat Clear Calc 109.09 Est GFR (MDRD) Af Amer 124 Est GFR (MDRD) Non-Af 102 BUN/Creatinine Ratio 10.9 Glucose 100 Calcium 8.4 L Urine Color Yellow Urine Clarity Clear Urine pH 7.0 Ur Specific [place] 1.005 Urine Protein Negative Urine Glucose (UA) Normal Urine Ketones 5 H Urine Occult Blood Negative Urine Nitrite Negative Urine Bilirubin Negative Urine Urobilinogen Normal Ur Leukocyte Esterase 25 H Urine RBC 0 SEEN Urine WBC 0 SEEN Ur Squamous Epith Cells 0 SEEN Urine Bacteria 0 SEEN Urine Mucus 0 SEEN 01/15/19 01/15/19 01/15/19 05:15 05:15 08:18 WBC 9.6 RBC 4.04 L Hgb 11.9 L Hct 37.2 L MCV 92.1 MCH 29.5 MCHC 32.0 RDW 13.4 RDW Differential 44.9 H Plt Count 248 MPV 9.3 Immature Gran % (Auto) 0.400 Neut % (Auto) 81.5 H Lymph % (Auto) 10.3 L [place] % (Auto) 7.0 Eos % (Auto) 0.5 Baso % (Auto) 0.3 Absolute Neuts (auto) 7.8 H Absolute Lymphs (auto) 0.99 Total Counted Not Reportable PT 17.0 H INR 1.4 APTT 32.5 Sodium 141 Potassium 3.7 Chloride 106 Carbon Dioxide 27.0 Anion Gap 8 BUN 6 L Creatinine 0.88 Estim Creat Clear Calc 98.64 Est GFR (MDRD) Af Amer 115 Est GFR (MDRD) Non-Af 95 BUN/Creatinine Ratio 6.8 L Glucose 97 Calcium 8.3 L Urine Color Urine Clarity Urine pH Ur Specific [place] Urine Protein Urine Glucose (UA) Urine Ketones Urine Occult Blood Urine Nitrite Urine Bilirubin Urine Urobilinogen Ur Leukocyte Esterase Urine RBC Urine WBC Ur Squamous Epith Cells Urine Bacteria Urine Mucus Medical Necessity - Tobacco Use Smoking Status: Former smoker Tobacco Use: Cigarettes Assessment/Plan All Active Problems (Last Reviewed 01/15/19 @ 05:08 by Jayme Magaña MD) Acute diverticulitis (Acute) #1 acute diverticulitis with diverticular abscess left lower quadrant-continue present antibiotic coverage, general surgery seeing patient, I increased the patient's pain medications today. #2 hypokalemia-corrected today, patient will remain on IV fluids and BMP will be rechecked tomorrow. Code Visit Inpatient E&M: 72027 Subs Hosp L2
[2019-01-15] MEDS: proMETHazine 25 MG/ML Syringe 12.5 MG IV (17:51)
[2019-01-16 02:50] VITALS: BP 91/52; PULSE 65; RESP 16; TEMP 36.9; O2SAT 94
[2019-01-16] MEDS: Heparin Injection (Vial) 5,000 UNIT/ML VIAL 5000 UNIT SC ×3 (05:52→21:04)
[2019-01-16 06:49] LABS: International Normalized Ratio 1.3; Prothrombin Time (Protime)PT. 16.1 SECONDS (11.7-14.9)
[2019-01-16 06:52] LABS: Anion Gap 6 (5-15); BUN 9 mg/dL (7-18); BUN/Creat Ratio 9.3 RATIO (10-20); Calcium,Total 8.2 mg/dL (8.5-10.1); Chloride 107 mmol/L (98-107); Creatinine, Serum 0.97 mg/dL (0.70-1.30); EST Glomerular Filtration Rate 85 mL/min (>60); Est Glom Filt Rate - Afr Amer 102 mL/min (>60); Estimated Creatinine Clearance 89.49 ml/min; Glucose 89 mg/dL (74-106); Potassium 4.4 mmol/L (3.5-5.1); Sodium Level 141 mmol/L (136-145)
[2019-01-16 07:09] LABS: Absolute Lymphocyte Count 1.42 X10^3/ul (0.83-4.51); Absolute Neutrophil Count 7.6 X10^3/uL (2.0-7.7); Basophil# 0.04 X10^3/uL; Basophil% 0.4 % (0-1); Eosinophil# 0.14 X10^3/uL; Eosinophils% 1.4 % (0-5); Hematocrit 39.6 % (40-54); Hemoglobin 12.4 g/dl (13.0-16.5); Lymphocyte # 1.42 X10^3/ul (4.0); Lymphocyte % 14.4 % (19-41); Mean Corp Hgb Conc 31.3 g/gl (32-36); Mean Corpuscular Hgb 29.5 pg (27.0-32.0); Mean Corpuscular Volume 94.1 fL (80-94); Mean Platelet Vol. 9.4 fl (6.2-12.0); Monocyte# 0.67 X10^3/uL; Monocyte% 6.8 % (0-10); Neutrophil # 7.57 X10^3/uL (2.7-7.7); Neutrophil % 76.6 % (47-70); Platelet Count 280 K/mm3 (150-450); RBC Distribution Width CV 13.3 % (11.6-14.6); RBC Distribution Width SD 44.4 fl (35.1-43.9); Red Blood Count 4.21 M/mm3 (4.6-6.2); White Blood Count 9.9 K/mm3 (4.4-11.0)
[2019-01-16 07:11] LABS: Differential Indicated SCAN CRITERIA MET; POSITIVE COUNT NO; POSITIVE DIFFERENTIAL NO; POSITIVE MORPHOLOGY YES
[2019-01-16 07:53] LABS: Partial Thromboplast Time 33.5 Seconds (24.1-36.2)
[2019-01-16] MEDS: Tamsulosin HCl 0.4 MG Capsule PO (08:07)
[2019-01-16 09:05] VITALS: BP 103/62; PULSE 67; RESP 16; TEMP 36.9; O2SAT 93
--- NOTE | 2019-01-16 09:07 | PCM.PN.SRG ---
Patient Problems: Active and Suspected Problems (Last Reviewed 01/15/19 @ 05:08 by Jayme Magaña MD) Acute diverticulitis (Acute) Subjective: less pain since catheter placed, passing flatus - Physical Exam General: Alert, Oriented x3, Cooperative Lungs: Clear to auscultation, Normal air movement Cardiovascular: Regular rate, No murmurs Abdomen: Bowel Sounds Present, Soft, Tender - at lower abdomen but improved Vital Signs Temp Pulse Resp BP Pulse Ox 98.5 F 67 16 103/62 93 01/16/19 09:05 01/16/19 09:05 01/16/19 09:05 01/16/19 09:05 01/16/19 09:05 Oxygen Flow Rate (L/min) [5] 2 Oxygen Flow Rate (L/min) [4] 2 Oxygen Flow Rate (L/min) [3] 2 Oxygen Flow Rate (L/min) [2] 2 Oxygen Flow Rate (L/min) [1 ( 2 Initial Baseline)] Oxygen Delivery Method [5] Nasal Cannula Oxygen Delivery Method [4] Nasal Cannula Oxygen Delivery Method [3] Nasal Cannula Oxygen Delivery Method [2] Nasal Cannula Oxygen Delivery Method [1 ( Nasal Cannula Initial Baseline)] Oxygen Delivery Method Room Air Weight: 85 kg Body Mass Index (BMI) 26.1 Intake and Output for Last 24 Hours 01/14/19 01/15/19 01/16/19 23:59 23:59 23:59 Intake Total 1902 / 1902 2393 / 2393 Output Total 1600 / 1600 660 / 660 Balance 302 / 302 1733 / 1733 Microbiology Past 72 Hours 01/15/19 Unknown Gram Stain - Final Aspirate - Abdominal Laboratory Tests Past 24 Hrs 01/16/19 01/16/19 01/16/19 06:10 06:10 06:10 WBC 9.9 RBC 4.21 L Hgb 12.4 L Hct 39.6 L MCV 94.1 H MCH 29.5 MCHC 31.3 L RDW 13.3 RDW Differential 44.4 H Plt Count 280 MPV 9.4 Immature Gran % (Auto) 0.400 Neut % (Auto) 76.6 H Lymph % (Auto) 14.4 L [place] % (Auto) 6.8 Eos % (Auto) 1.4 Baso % (Auto) 0.4 Absolute Neuts (auto) 7.6 Absolute Lymphs (auto) 1.42 Total Counted Not Reportable PT 16.1 H INR 1.3 APTT 33.5 Sodium 141 Potassium 4.4 Chloride 107 Carbon Dioxide 28.0 Anion Gap 6 BUN 9 Creatinine 0.97 Estim Creat Clear Calc 89.49 Est GFR (MDRD) Af Amer 102 Est GFR (MDRD) Non-Af 85 BUN/Creatinine Ratio 9.3 L Glucose 89 Calcium 8.2 L Medical Necessity - Tobacco Use Smoking Status: Former smoker Tobacco Use: Cigarettes Assessment/Plan All Active Problems (Last Reviewed 01/15/19 @ 05:08 by Jayme Magaña MD) Acute diverticulitis (Acute) diverticulitis, now with 2 low pelvic abscesses. Patient is admitted to the medicine service. Radiologyperformed CT guided drainage yielding 40 cc of pus. Pigtail drain is in place. patient clinically much improved, but due to degree of inflammation in the pelvis with loops of small bowel that are inflamed would be careful advancing patient beyond clear liquids or low residue diet. Patient was started on IV Zosyn. He'll be given narcotic pain medication as needed.
[2019-01-16] MEDS: 0.9% NaCl Peripheral Flush Adult/Peds IV (10:47)
[2019-01-16 14:55] VITALS: BP 105/58; PULSE 82; RESP 18; TEMP 36.4; O2SAT 94
[2019-01-16] MEDS: proMETHazine 25 MG Tablet PO ×2 (14:57→22:19)
[2019-01-16 16:30] VITALS: O2SAT 95
--- NOTE | 2019-01-16 16:41 | PN_ITS ---
Patient Problems: Active and Suspected Problems (Last Reviewed 01/15/19 @ 05:08 by Jayme Magaña MD) Acute diverticulitis (Acute) Subjective: Patient was seen and examined today, I talked briefly with general surgery today about his care, general surgery recommended to continue IV antibiotic therapy for another 48 hours. Patient has significantly less abdominal pain today. - Physical Exam General: Alert, Oriented x3, Cooperative, No apparent distress, Well developed, Well nourished HEENT: Atraumatic, PERRLA, EOMI, Normocephalic Oral: Moist Mucosa Neck: Supple, No JVD, Trachea Midline, Thyroid Normal Size and Texture Lungs: Clear to auscultation, Normal air movement, No rhonchi, No wheeze, No rales Cardiovascular: Regular rate, Regular Rhythm, Normal S1, Normal S2, No murmurs, No Ectopic Activity, PMI Normal, No rub noted Abdomen: Bowel Sounds Present, Soft, Tender - Mild abdominal tenderness is noted over the lower abdomen to palpation Extremities: No edema, Capillary Refill Less than 3 Seconds Skin: No rashes, No breakdown Musculoskeletal: No Tenderness to Palpation of Joints or Extremities Neurological: Cranial nerves II-XII grossly intact, Neuro grossly intact, Sensory exam intact to light touch and pain, Coordination normal Psych/Mental Status: Normal Affect, Appropriate, Alert and oriented to time, place, person, mood and affect Vital Signs Temp Pulse Resp BP Pulse Ox 97.5 F L 82 18 105/58 L 94 01/16/19 14:55 01/16/19 14:55 01/16/19 14:55 01/16/19 14:55 01/16/19 14:55 Oxygen Flow Rate (L/min) [5] 2 Oxygen Flow Rate (L/min) [4] 2 Oxygen Flow Rate (L/min) [3] 2 Oxygen Flow Rate (L/min) [2] 2 Oxygen Flow Rate (L/min) [1 ( 2 Initial Baseline)] Oxygen Delivery Method [5] Nasal Cannula Oxygen Delivery Method [4] Nasal Cannula Oxygen Delivery Method [3] Nasal Cannula Oxygen Delivery Method [2] Nasal Cannula Oxygen Delivery Method [1 ( Nasal Cannula Initial Baseline)] Oxygen Delivery Method Room Air Weight: 85 kg Body Mass Index (BMI) 26.1 Intake and Output for Last 24 Hours 01/14/19 01/15/19 01/16/19 23:59 23:59 23:59 Intake Total 1902 / 1902 2753 / 2753 Output Total 1600 / 1600 1335 / 1335 Balance 302 / 302 1418 / 1418 Microbiology Past 72 Hours 01/15/19 Unknown Gram Stain - Final Aspirate - Abdominal Wound Culture - Preliminary No growth-Final to follow Laboratory Tests Past 24 Hrs 01/16/19 01/16/19 01/16/19 06:10 06:10 06:10 WBC 9.9 RBC 4.21 L Hgb 12.4 L Hct 39.6 L MCV 94.1 H MCH 29.5 MCHC 31.3 L RDW 13.3 RDW Differential 44.4 H Plt Count 280 MPV 9.4 Immature Gran % (Auto) 0.400 Neut % (Auto) 76.6 H Lymph % (Auto) 14.4 L [place] % (Auto) 6.8 Eos % (Auto) 1.4 Baso % (Auto) 0.4 Absolute Neuts (auto) 7.6 Absolute Lymphs (auto) 1.42 Total Counted Not Reportable PT 16.1 H INR 1.3 APTT 33.5 Sodium 141 Potassium 4.4 Chloride 107 Carbon Dioxide 28.0 Anion Gap 6 BUN 9 Creatinine 0.97 Estim Creat Clear Calc 89.49 Est GFR (MDRD) Af Amer 102 Est GFR (MDRD) Non-Af 85 BUN/Creatinine Ratio 9.3 L Glucose 89 Calcium 8.2 L Medical Necessity - Tobacco Use Smoking Status: Former smoker Tobacco Use: Cigarettes Assessment/Plan All Active Problems (Last Reviewed 01/15/19 @ 05:08 by Jayme Magaña MD) Acute diverticulitis (Acute) #1 acute diverticulitis with diverticular abscess left lower quadrant-continue present antibiotic coverage, general surgery seeing patient, continue present antibiotic coverage, status post percutaneous drainage of abdominal abscess by radiology #2 hypokalemia-corrected Code Visit Inpatient E&M: 33524 Subs Hosp L2
[2019-01-16] MEDS: oxyCODONE 5 MG Tablet PO ×2 (17:05→22:19)
[2019-01-16 20:50] VITALS: BP 95/53; PULSE 62; RESP 16; TEMP 36.6; O2SAT 96
[2019-01-17 03:00] VITALS: BP 100/59; PULSE 68; RESP 16; TEMP 37.2; O2SAT 93
[2019-01-17] MEDS: Heparin Injection (Vial) 5,000 UNIT/ML VIAL 5000 UNIT SC ×2 (06:21→13:51)
[2019-01-17 07:26] VITALS: O2SAT 93
[2019-01-17] MEDS: oxyCODONE 5 MG Tablet PO ×2 (07:30→12:17)
[2019-01-17] MEDS: proMETHazine 25 MG Tablet PO (07:30)
[2019-01-17 08:06] VITALS: BP 114/70; PULSE 66; RESP 16; TEMP 36.8; O2SAT 94
[2019-01-17] MEDS: Tamsulosin HCl 0.4 MG Capsule PO (08:54)
--- NOTE | 2019-01-17 11:45 | PCM.PN.SRG ---
Patient Problems: Active and Suspected Problems (Last Reviewed 01/15/19 @ 05:08 by Jayme Magaña MD) Acute diverticulitis (Acute) Subjective: feeling much better, some drainage through pigtail drain - Physical Exam Lungs: Clear to auscultation, Normal air movement Cardiovascular: Regular rate, No murmurs Abdomen: Bowel Sounds Present, Soft, Non Tender Vital Signs Temp Pulse Resp BP Pulse Ox 98.3 F 66 16 114/70 94 01/17/19 08:06 01/17/19 08:06 01/17/19 08:06 01/17/19 08:06 01/17/19 08:06 Oxygen Flow Rate (L/min) [5] 2 Oxygen Flow Rate (L/min) [4] 2 Oxygen Flow Rate (L/min) [3] 2 Oxygen Flow Rate (L/min) [2] 2 Oxygen Flow Rate (L/min) [1 ( 2 Initial Baseline)] Oxygen Delivery Method [5] Nasal Cannula Oxygen Delivery Method [4] Nasal Cannula Oxygen Delivery Method [3] Nasal Cannula Oxygen Delivery Method [2] Nasal Cannula Oxygen Delivery Method [1 ( Nasal Cannula Initial Baseline)] Oxygen Delivery Method Room Air Weight: 85 kg Body Mass Index (BMI) 26.1 Intake and Output for Last 24 Hours 01/15/19 01/16/19 01/17/19 23:59 23:59 23:59 Intake Total 1902 / 1902 2753 / 2753 688 / 688 Output Total 1600 / 1600 1335 / 1335 10 / 10 Balance 302 / 302 1418 / 1418 678 / 678 Microbiology Past 72 Hours 01/15/19 Unknown Gram Stain - Final Aspirate - Abdominal Wound Culture - Preliminary GNR Poss Pseudomonas sp Anaerobic Culture - Preliminary No growth in 48 hours. Medical Necessity - Tobacco Use Smoking Status: Former smoker Tobacco Use: Cigarettes Assessment/Plan All Active Problems (Last Reviewed 01/15/19 @ 05:08 by Jayme Magaña MD) Acute diverticulitis (Acute) diverticulitis, now with 2 low pelvic abscesses. Patient is admitted to the medicine service. Radiology performed CT guided drainage yielding 40 cc of pus. Pigtail drain is in place. recommend flushing pigtail drain with 5 cc of saline every 12 hours. patient clinically much improved, but due to degree of inflammation in the pelvis with loops of small bowel that are inflamed would be careful advancing patient beyond clear liquids or low residue diet. I'm comfortable with the patient being transitioned to oral antibiotics and discharged home. I would like the patient to continue to flush the pigtail at home twice a day. I would like the patient to follow-up in my office next .
[2019-01-17] MEDS: Ondansetron 4 MG/2 ML Vial IV (12:17)
[2019-01-17] MEDS: 0.9% NaCl Peripheral Flush Adult/Peds IV (12:18)
[2019-01-17 13:50] VITALS: BP 106/56; PULSE 74; RESP 16; TEMP 37.1; O2SAT 96
--- NOTE | 2019-01-17 15:37 | DCINST_ITS ---
- Discharge Diagnoses Current Active Problems: Current Active and Chronic Problems (Last Reviewed 01/15/19 @ 05:08 by Jayme Maagña MD) Acute diverticulitis (Acute) You will use the following diet at home:: No restrictions Your food should be the consistency of: Regular Your liquids should be the consistency of: Regular/Thin Discharge Activity: Return to Normal Activity Weight Bearing Status: Full weight bearing Additional Instructions: flush catheter with 5 ml sterile saline and attempt to aspirate twice daily Allergies/Adverse Reactions: Allergies No Known Allergies Allergy (Verified 01/14/19 15:57) Medications to take at Discharge Tamsulosin HCl [Flomax] 0.4 mg PO DAILY 01/08/19 Calcium Polycarbophil [Fiber] 625 mg PO DAILY 01/14/19 Multivitamin with Minerals [Multiple Vitamin] 1 tab PO DAILY 01/14/19 Ciprofloxacin [Cipro] 500 mg PO BID #14 tab 01/17/19 Hydrocodone/Acetaminophen [[place] 5-325 Tablet] 1 - 2 each PO 4X/DAY PRN PRN 7 Days #30 tablet 01/17/19 Metronidazole [Flagyl] 500 mg PO TID #21 tab 01/17/19 proMETHazine tablet [Phenergan tablet] 25 mg PO Q6H PRN PRN #20 tablet 01/17/19 The following prescriptions were given: proMETHazine tablet [Phenergan tablet] 25 mg PO Q6H PRN PRN #20 tablet PRN Reason: Nausea/Vomiting Hydrocodone/Acetaminophen [[place] 5-325 Tablet] 1 - 2 each PO 4X/DAY PRN PRN 7 Days #30 tablet PRN Reason: Pain Ciprofloxacin [Cipro] 500 mg PO BID #14 tab Metronidazole [Flagyl] 500 mg PO TID #21 tab Primary Care Physician: [facility] Doctor,Out of [NON-STAFF] - Test Results: Test results from this visit will be discussed in further detail at your follow- up appointment, if applicable. Please Follow Up With: Arian Stallings MD When: next -call for appointment
--- NOTE | 2019-01-19 16:24 | PCM.DC.SUM ---
Discharge Date and Diagnosis Date of Admission: 01/14/19 Date of Discharge: 01/17/19 - Primary Discharge Diagnosis #1 acute diverticulitis with diverticular abscess from Pseudomonas aeruginosa- left lower quadrant from perforated diverticulum-failed outpatient treatment #2 hypokalemia #3 BPH Hospital Course and Treatment Operations: None Procedures: - - Percutaneous drainage of diverticular abscess in pelvis under CT guidance-01/15/19 Summary of Care Provided: The patient is a 58 year old M was seen in the emergency room at [facility] for lower abdominal pain along with fever and chills. He had been seen last week in the emergency room for urinary retention and a CT of the abdomen that time revealed acute diverticulitis, he had been placed on Cipro and Flagyl for the past week. Patient was given IV Zosyn in the emergency room, general surgery was contacted and patient had a CT scan with contrast that revealed fluid collections within the pelvis suspicious for underlying abscesses. Air within the fluid collection suggested a prior bowel perforation. Patient was admitted to [place] [address], placed on IV fluids and IV antibiotics, he was seen in consultation by general surgery, patient underwent a CT-guided drainage of a pelvic abscess on 01/15/19. Abscess drainage culture resulted and rare colonies of pseudomonas aeruginosa. On 01/17/19, patient was seen and examined: On examination he appeared in good health and spirits. Vital signs as documented. Skin warm and dry and without overt rashes. Neck without JVD. Lungs clear. Heart exam notable for regular rhythm, normal sounds and absence of murmurs, rubs or gallops. Abdomen unremarkable and without evidence of organomegaly, masses, or abdominal aortic enlargement. Extremities nonedematous. Neuro: Cranial nerves II through XII are grossly intact, no focal motor deficits were noted, sensation to light touch and pinprick intact. Psych: Patient is alert and oriented x3, he does not appear anxious or depressed - Physical Exam Vital Signs Temp Pulse Resp BP Pulse Ox 98.8 F 74 16 106/56 L 96 01/17/19 13:50 01/17/19 13:50 01/17/19 13:50 01/17/19 13:50 01/17/19 13:50 Oxygen Flow Rate (L/min) [5] 2 Oxygen Flow Rate (L/min) [4] 2 Oxygen Flow Rate (L/min) [3] 2 Oxygen Flow Rate (L/min) [2] 2 Oxygen Flow Rate (L/min) [1 ( 2 Initial Baseline)] Oxygen Delivery Method [5] Nasal Cannula Oxygen Delivery Method [4] Nasal Cannula Oxygen Delivery Method [3] Nasal Cannula Oxygen Delivery Method [2] Nasal Cannula Oxygen Delivery Method [1 ( Nasal Cannula Initial Baseline)] Oxygen Delivery Method Room Air Weight: 85 kg Body Mass Index (BMI) 26.1 Intake and Output for Last 24 Hours 01/17/19 01/18/19 01/19/19 23:59 23:59 23:59 Intake Total 963 / 963 Output Total Balance 953 / 953 Microbiology Past 72 Hours 01/15/19 Unknown Gram Stain - Final Aspirate - Abdominal Wound Culture - Final Pseudomonas aeroginosa Anaerobic Culture - Preliminary No growth in 48 hours. Discharge Activity: Return to Normal Activity Weight Bearing Status: Full weight bearing Home Medications: Medications to take at Discharge Tamsulosin HCl [Flomax] 0.4 mg PO DAILY 01/08/19 Calcium Polycarbophil [Fiber] 625 mg PO DAILY 01/14/19 Multivitamin with Minerals [Multiple Vitamin] 1 tab PO DAILY 01/14/19 Ciprofloxacin [Cipro] 500 mg PO BID #14 tab 01/17/19 Hydrocodone/Acetaminophen [[place] 5-325 Tablet] 1 - 2 each PO 4X/DAY PRN PRN 7 Days #30 tablet 01/17/19 Metronidazole [Flagyl] 500 mg PO TID #21 tab 01/17/19 proMETHazine tablet [Phenergan tablet] 25 mg PO Q6H PRN PRN #20 tablet 01/17/19 Following Prescrptions Were Given to Patient: proMETHazine tablet [Phenergan tablet] 25 mg PO Q6H PRN PRN #20 tablet PRN Reason: Nausea/Vomiting Hydrocodone/Acetaminophen [[place] 5-325 Tablet] 1 - 2 each PO 4X/DAY PRN PRN 7 Days #30 tablet PRN Reason: Pain Ciprofloxacin [Cipro] 500 mg PO BID #14 tab Metronidazole [Flagyl] 500 mg PO TID #21 tab Primary Care Physician: [facility] Doctor,Out of [NON-STAFF] - Please Follow Up With: Arian Stallings MD When: next -call for appointment Disposition: Home Minutes spent on discharge:: 32 Patient Condition:: Stable Medical Necessity - Tobacco Use Smoking Status: Former smoker Tobacco Use: Cigarettes Meaningful Use Info Meaningful Use Diagnoses (Choose all that apply): None applicable Code Visit Inpatient E&M: 49943 Disch Hosp
--- NOTE | 2019-01-19 16:30 | DS.PCM_ITS ---
Discharge Date and Diagnosis Date of Admission: 01/14/19 Date of Discharge: 01/17/19 - Primary Discharge Diagnosis #1 acute diverticulitis with diverticular abscess from Pseudomonas aeruginosa- left lower quadrant from perforated diverticulum-failed outpatient treatment #2 hypokalemia #3 BPH Hospital Course and Treatment Operations: None Procedures: - - Percutaneous drainage of diverticular abscess in pelvis under CT guidance-01/15/19 Summary of Care Provided: The patient is a 58 year old M was seen in the emergency room at [facility] for lower abdominal pain along with fever and chills. He had been seen last week in the emergency room for urinary retention and a CT of the abdomen that time revealed acute diverticulitis, he had been placed on Cipro and Flagyl for the past week. Patient was given IV Zosyn in the emergency room, general surgery was contacted and patient had a CT scan with contrast that revealed fluid collections within the pelvis suspicious for underlying abscesses. Air within the fluid collection suggested a prior bowel perforation. Patient was admitted to [place] [id number], placed on IV fluids and IV antibiotics, he was seen in consultation by general surgery, patient underwent a CT-guided drainage of a pelvic abscess on 01/15/19. Abscess drainage culture resulted and rare colonies of pseudomonas aeruginosa. On 01/17/19, patient was seen and examined: On examination he appeared in good health and spirits. Vital signs as documented. Skin warm and dry and without overt rashes. Neck without JVD. Lungs clear. Heart exam notable for regular rh ythm, normal sounds and absence of murmurs, rubs or gallops. Abdomen unremarkable and without evidence of organomegaly, masses, or abdominal aortic enlargement. Extremities nonedematous. Neuro: Cranial nerves II through XII are grossly intact, no focal motor deficits were noted, sensation to light touch and pinprick intact. Psych: Patient is alert and oriented x3, he does not appear anxious or depressed - Physical Exam Vital Signs Temp Pulse Resp BP Pulse Ox 98.8 F 74 16 106/56 L 96 01/17/19 13:50 01/17/19 13:50 01/17/19 13:50 01/17/19 13:50 01/17/19 13:50 Oxygen Flow Rate (L/min) [5] 2 Oxygen Flow Rate (L/min) [4] 2 Oxygen Flow Rate (L/min) [3] 2 Oxygen Flow Rate (L/min) [2] 2 Oxygen Flow Rate (L/min) [1 ( 2 Initial Baseline)] Oxygen Delivery Method [5] Nasal Cannula Oxygen Delivery Method [4] Nasal Cannula Oxygen Delivery Method [3] Nasal Cannula Oxygen Delivery Method [2] Nasal Cannula Oxygen Delivery Method [1 ( Nasal Cannula Initial Baseline)] Oxygen Delivery Method Room Air Weight: 85 kg Body Mass Index (BMI) 26.1 Intake and Output for Last 24 Hours 01/17/19 01/18/19 01/19/19 23:59 23:59 23:59 Intake Total 963 / 963 Output Total Balance 953 / 953 Microbiology Past 72 Hours 01/15/19 Unknown Gram Stain - Final Aspirate - Abdominal Wound Culture - Final Pseudomonas aeroginosa Anaerobic Culture - Preliminary No growth in 48 hours. Discharge Activity: Return to Normal Activity Weight Bearing Status: Full weight bearing Home Medications: Medications to take at Discharge Tamsulosin HCl [Flomax] 0.4 mg PO DAILY 01/08/19 Calcium Polycarbophil [Fiber] 625 mg PO DAILY 01/14/19 Multivitamin with Minerals [Multiple Vitamin] 1 tab PO DAILY 01/14/19 Ciprofloxacin [Cipro] 500 mg PO BID #14 tab 01/17/19 Hydrocodone/Acetaminophen [Hampton 5-325 Tablet] 1 - 2 each PO 4X/DAY PRN PRN 7 Days #30 tablet 01/17/19 Metronidazole [Flagyl] 500 mg PO TID #21 tab 01/17/19 proMETHazine tablet [Phenergan tablet] 25 mg PO Q6H PRN PRN #20 tablet 01/17/19 Following Prescrptions Were Given to Patient: proMETHazine tablet [Phenergan tablet] 25 mg PO Q6H PRN PRN #20 tablet PRN Reason: Nausea/Vomiting Hydrocodone/Acetaminophen [Hampton 5-325 Tablet] 1 - 2 each PO 4X/DAY PRN PRN 7 Days #30 tablet PRN Reason: Pain Ciprofloxacin [Cipro] 500 mg PO BID #14 tab Metronidazole [Flagyl] 500 mg PO TID #21 tab Primary Care Physician: [facility],Out of [NON-STAFF] - Please Follow Up With: Arian Stallings MD When: -call for appointment Disposition: Home Minutes spent on discharge:: 32 Patient Condition:: Stable Medical Necessity - Tobacco Use Smoking Status: Former smoker Tobacco Use: Cigarettes Meaningful Use Info Meaningful Use Diagnoses (Choose all that apply): None applicable Code Visit Inpatient E&M: 33693 Disch Hosp
== END 2019-01-17 17:35 | disposition home or self-care (01) | DRG 392 ==
LOC: ED 16:19 → MS2 19:40
PROVIDERS: Surgery; Admitting Provider Hospitalist; Emergency Provider Emergency Medicine; Referring Provider Hospitalist; Visit Provider Internal Medicine
DX: K57.20 Diverticulitis of large intestine with perforation and abscess without bleeding (principal); E87.6 Hypokalemia; B96.5 Pseudomonas (aeruginosa) (mallei) (pseudomallei) as the cause of diseases classified elsewhere; N40.0 Benign prostatic hyperplasia without lower urinary tract symptoms
CPT/HCPCS: 36415; 74177; 75989; 80048; 81001; 85025; 85610; 85730; 87070; 87075; 87077; 87186; 87205; 99156; 99157; 99282; J7030; J7040; J7120; Q9967; A4216; J2405

== ENCOUNTER 2020-01-25 11:08 | Emergency (ER) | payer BC, SELFPAY ==
[2019-01-14 20:37] VITALS: BMI 26.1
[2020-01-25 11:09] VITALS: BP 127/77; PULSE 77; RESP 16; TEMP 37.7; O2SAT 100; BMI 28.5
--- NOTE | 2020-01-25 11:31 | CT_ITS ---
STUDY: CT ABDOMEN AND PELVIS WITH CONTRAST REASON FOR EXAM: Male, 59 years old. Left lower quadrant pain. History of diverticulitis. RADIATION DOSAGE (If Supplied By Facility): CTDIvol = ( 16.95 ) mGy, DLP = ( 1186.48 ) mGycm TECHNIQUE: Transaxial images were obtained from the dome of the diaphragm to the symphysis pubis with oral contrast. 100 ml of Isovue 300 contrast was administered. Sagittal and coronal images were reconstructed. Individualized dose optimization techniques were used for this CT. COMPARISON: 01/14/2019 FINDINGS: There is atelectasis at the lung bases. The visualized portions of the heart and pericardium are within normal limits. There are no calcified gallstones present. The liver is within normal limits. There are no suspicious hepatic lesions. The spleen is normal in size. The pancreas is within normal limits. The adrenal glands are within normal limits. There are no renal or ureteral stones. There is no hydronephrosis. There are no focal renal lesions. Normal visualized stomach. There is no bowel obstruction or inflammation. There is a large amount of stool in the colon, consistent with constipation. The appendix is visualized and appears normal. There is a stable small fat-containing umbilical hernia. There is no bowel containing hernia. The aorta is normal in caliber. There is no abdominal or pelvic free air, free fluid, fluid collection or lymphadenopathy. There are no destructive osseous lesions. CT/Abdomen/Pelvis WITH Contrast IMPRESSION: No acute abdominal or pelvic pathology. Electronically Signed: Louis Gordillo, at 13:37 EDT Tel , Service support ,
--- NOTE | 2020-01-25 11:33 | ED.VISSUMM ---
- ER Visit Summary Date of Service: 01/25/20 Chief Complaint: Rectal pain and bleeding History of Present Illness: The patient is a 59 M who presents with rectal pain and bleeding that began today. Patient states he has a history of diverticulitis and this feels somewhat similar to the symptoms he had at the beginning of a prior episode of diverticulitis. Patient states he has sharp pain in his rectum. Patient states this is worse when he has a bowel movement. Patient admits to some nausea when the pain comes on but denies any vomiting. Patient states his stools have been loose. Patient states he noted a small amount of blood in his stools. Patient denies any dysuria or hematuria. Patient admits to some chills and sweats. Physical Examination: Vital signs are stable. Patient is afebrile. Patient is in no acute distress. Oral mucosa is pink and moist. Neck is supple. Trachea is midline. There is no JVD noted. Heart was regular rate and rhythm. Lungs are clear and equal bilaterally. Abdomen is soft. Bowel sounds are normal. There is no tenderness. There is no rebound or guarding noted. Rectal exam does show some hemorrhoids but there is no bleeding noted. Skin is warm dry. Cranial nerves II through XII are intact. There are no focal motor or sensory deficits noted. Extremities are intact. There is no calf tenderness or edema. Test Results: CBC and comprehensive metabolic profile were obtained were within normal limits. CT scan of the abdomen and pelvis was obtained. There is no acute abnormality noted. There is no evidence of diverticulitis. There is moderate amount of stool through the colon. This was interpreted by the radiologist and reviewed by myself. Emergency Department Course and Treatment: Patient was given IV fluids. Patient was feeling better on reevaluation. Patient was advised of his findings. Given that the pain is more rectal than abdominal, I think this is more related to hemorrhoid pain than abdominal pain. Patient was given a prescription for Anusol HC suppositories. Patient was instructed to follow-up with his primary care physician in 5 to 7 days. Patient understood and was agreeable with the plan. All questions were answered. Disposition: Discharge home Impression: 1. External hemorrhoids This note was generated with [employer] software. It may contain incorrect words, spelling, and punctuation that were not noted in review of the chart prior to signing ED Disposition - Plan for ED Patient: Disposition: Home or Assisted Living Diagnosis: External hemorrhoids without complication Instructions: ED Hemorrhoids Prescriptions: Hydrocortisone [Anusol Hc] 25 mg RECTAL DAILY PRN PRN #7 suppos. PRN Reason: Hemorrhoids Prescription Printed Referrals: Care Physician,No Primary [NON-STAFF] - 5-7 Days
[2020-01-25] MEDS: 0.9% Normal Saline 1,000 ML 1000 ML IV (11:47)
[2020-01-25] MEDS: Ondansetron 4 MG/2 ML Vial IV (11:48)
[2020-01-25 11:52] LABS: Absolute Lymphocyte Count 0.58 X10^3/uL (0.83-4.51); Absolute Neutrophil Count 5.8 X10^3/uL (2.0-7.7); Basophil# 0.03 X10^3/uL; Basophil% 0.4 % (0-1); Eosinophil# 0.05 X10^3/uL; Eosinophils% 0.7 % (0-5); Hematocrit 42.2 % (40-54); Hemoglobin 14.3 g/dL (13.0-16.5); Lymphocyte # 0.58 X10^3/ul (4.0); Lymphocyte % 8.5 % (19-41); Mean Corp Hgb Conc 33.9 g/dL (32-36); Mean Corpuscular Hgb 31.6 pg (27.0-32.0); Mean Corpuscular Volume 93.4 fL (80-94); Mean Platelet Vol. 9.8 fl (6.2-12.0); Monocyte# 0.35 X10^3/uL; Monocyte% 5.1 % (0-10); NRBC Flagged by Analyzer 0 % (0-5); Neutrophil # 5.84 X10^3/uL (2.7-7.7); Neutrophil % 85.2 % (47-70); POSITIVE DIFFERENTIAL YES; Platelet Count 167 K/mm3 (150-450); RBC Distribution Width CV 12.7 % (11.6-14.6); RBC Distribution Width SD 41.9 fl (35.1-43.9); Red Blood Count 4.52 M/mm3 (4.6-6.2); White Blood Count 6.9 K/mm3 (4.4-11.0)
[2020-01-25 12:01] LABS: Differential Indicated SCAN CRITERIA MET
[2020-01-25 12:07] LABS: ALB/GLOB Ratio 1.3 RATIO (0.9-2.4); AST(SGOT) 12 U/L (15-37); Alanine Aminotransfer ALT/SGPT 24 U/L (16-61); Alkaline Phosphatase 59 U/L (45-117); Anion Gap 7 (5-15); BUN 17 mg/dL (7-18); Calcium,Total 9.1 mg/dL (8.5-10.1); Chloride 112 mmol/L (98-107); Creatinine, Serum 0.95 mg/dL (0.70-1.30); EST Glomerular Filtration Rate 87 mL/min (>60); Est Glom Filt Rate - Afr Amer 105 mL/min (>60); Estimated Creatinine Clearance 87.51 ml/min; Glucose 118 mg/dL (74-106); Lipase 93 U/L (73-393); Sodium Level 143 mmol/L (136-145)
[2020-01-25 13:27] VITALS: BP 111/87; PULSE 68; RESP 16; O2SAT 98
[2020-01-25 14:49] VITALS: BP 111/87; PULSE 68; RESP 16; O2SAT 98
== END 2020-01-25 14:52 | disposition home or self-care (01) ==
PROVIDERS: Emergency Provider Emergency Medicine; PCP Internal Medicine
DX: K64.4 Residual hemorrhoidal skin tags (principal)
CPT/HCPCS: 74177; 80053; 83690; 85025; 96361; 96374; 99283; J7030; Q9967; A4216; J2405

== ENCOUNTER → 2022-12-07 | Outpatient (CLI) | payer BC, SELFPAY ==
--- NOTE | 2022-12-08 11:57 | STRESSREP_ITS ---
Stress Test Report Date: 12/07/2022 Procedure: Exercise tolerance test/imaging study Indications: Chest pain Consent: Per the patient Procedure: The patient exercised on a Sebastien protocol for 8 minutes and 15 seconds achieving a peak heart rate of 134 bpm (84% predicted maximal heart rate) with a peak blood pressure 162/70 mmHg and a peak MET capacity of 10.1 METs. The baseline ECG demonstrated normal sinus rhythm. The peak exercise ECG demonstrated about [address] depressions in the inferior and lateral leads. EKG during recovery revealed return of ST segments to baseline [There were no cardiac dysrhythmias pretest, during exercise, or recovery]. The functional capacity was considered normal for age. There was [no complaint of chest discomfort during exercise or recovery]. The examination was discontinued secondary to leg discomfort. Impression: 1. Technically adequate exercise tolerance test 2. Stress test is positive for exercise-induced EKG changes of ischemia 3. The test test is negative for exercise-induced chest pain 4. Functional capacity is normal for age 5. Nuclear images pending Myocardial perfusion imaging study: Technique: The patient was injected with 11.3 mCi of technetium 99m Cardiolite and subsequently rest SPECT Cardiolite nuclear imaging was obtained in the horizontal long, vertical long, and short axis views. The patient exercised on a Sebastien protocol. Please see above for details. The patient was injected with 34.1 mCi of technetium 99m Cardiolite and subsequently stress SPECT Cardiolite nuclear imaging was obtained in the horizontal long, vertical long, and short axis views. A gated Cardiolite study at peak stress was obtained. Interpretation: Rest and stress SPECT Cardiolite nuclear imaging status post realignment, normalization, and attenuation correction, demonstrates overall normal myocardial radioisotope uptake. The gated Cardiolite study demonstrates no significant regional wall motion abnormalities. The reported LVEF is greater than 70%. Impression: 1. There is no evidence of significant ischemia or infarction on the nuclear portion of the test. Please see above for the EKG portion of the test. 2. The gated Cardiolite study reports an LVEF of greater than 70%. This note was generated with [employer] software. It may contain incorrect words, spelling, and punctuation that were not noted in checking the note before signing.
== END | disposition home or self-care (01) ==
LOC: CVS 06:51
PROVIDERS: PCP Internal Medicine; Visit Provider Internal Medicine
DX: R07.9 Chest pain, unspecified (principal)
CPT/HCPCS: 78452; 93017; A9500; A4216

== ENCOUNTER → 2024-01-14 | Outpatient (CLI) | payer BC, SELFPAY | END | disposition home or self-care (01) | PROVIDERS: PCP Internal Medicine; Referring Provider Internal Medicine; Visit Provider Internal Medicine | DX: I49.3 Ventricular premature depolarization (principal) | CPT/HCPCS: 93225; 93226 ==

== ENCOUNTER → 2024-04-26 | Outpatient (CLI) | payer BC, SELFPAY ==
[2024-04-26 12:08] LABS: Hemoglobin A1c 5.4 % (3.8-5.6)
[2024-04-26 12:09] LABS: ALB/GLOB Ratio 1.2 RATIO (0.9-2.4); AST(SGOT) 16 U/L (15-37); Alanine Aminotransfer ALT/SGPT 27 U/L (16-61); Albumin, Serum 3.8 g/dL (3.2-5.0); Alkaline Phosphatase 60 U/L (45-117); Anion Gap 7 (5-15); BUN 17 mg/dL (7-18); BUN/Creat Ratio 19.6 RATIO (10-20); CRP 3.27 mg/L (0.0-3.0); Calcium,Total 9.1 mg/dL (8.5-10.1); Chloride 109 mmol/L (98-107); Cholesterol 181 mg/dL (200); Creatinine, Serum 0.87 mg/dL (0.70-1.30); EST Glomerular Filtration Rate 95 mL/min (>60); Est Glom Filt Rate - Afr Amer 115 mL/min (>60); Globulin 3.1 g/dL (2.2-4.2); Glucose 97 mg/dL (74-106); High Density Lipoprotein 56 mg/dL; PSA,Total- Diagnostic 2.73 ng/mL (0.0-4.0); Potassium 3.8 mmol/L (3.5-5.1); Protein, Total 6.9 g/dL (6.4-8.2); Sodium Level 140 mmol/L (136-145); Triglycerides 47 mg/dL; Very Low Density Lipoprotein 9 mg/dL (5-40)
[2024-04-28 08:27] LABS: Vitamin D,25 Hydroxy 47.7 ng/mL
== END | disposition home or self-care (01) ==
LOC: LAB 10:49
PROVIDERS: PCP Internal Medicine; Referring Provider Internal Medicine; Visit Provider Internal Medicine
DX: N40.0 Benign prostatic hyperplasia without lower urinary tract symptoms (principal); E55.9 Vitamin D deficiency, unspecified; R73.01 Impaired fasting glucose; E78.5 Hyperlipidemia, unspecified; R79.82 Elevated C-reactive protein (CRP)
CPT/HCPCS: 36415; 80053; 80061; 82306; 83036; 84153; 86140